=== PATIENT | male | born 1960 | race African-American/Black ===

== ENCOUNTER → 2017-07-16 | Outpatient (CLI) | payer OTHER ==
--- NOTE | 2017-07-16 18:04 | RADIOLOGY REPORT (SQ) ---
EXAM DESCRIPTION: FOOT BILATERAL 2 VIEWS COMPLETED DATE/TIME: 07/16/2017 5:47 pm REASON FOR STUDY: Pain in left foot COMPARISON: None. NUMBER OF VIEWS: Three views. TECHNIQUE: AP, lateral and oblique radiographic images acquired of the right and left foot. LIMITATIONS: None. FINDINGS: MINERALIZATION: Normal. BONES: No acute fracture or dislocation. There is a small plantar calcaneal spur on the right. JOINTS: No effusions. SOFT TISSUES: No soft tissue swelling. No foreign body. OTHER: No other significant finding. IMPRESSION: Calcaneal spur on the right. No acute abnormality. TECHNICAL DOCUMENTATION: JOB ID: [id number] [employer]- All Rights Reserved
== END ==
LOC: RAD 17:13
PROVIDERS: ATTEND Nurse Practitioner
DX: M79.672 Pain in left foot (principal); M77.31 Calcaneal spur, right foot

== ENCOUNTER 2017-11-24 10:11 | Emergency (ER) | payer OTHER ==
[2017-11-24 10:23] VITALS: BP 147/69
[2017-11-24] MEDS ORDERED: KETOROLAC TROMETHAMINE 60 MG/2 ML SDV ONE (11:44)
[2017-11-24] MEDS ORDERED: OXYCODONE-ACETAMINOPHEN 5-325 MG TABLET ONE (11:45)
--- NOTE | 2017-11-25 09:58 | RADIOLOGY REPORT (SQ) ---
EXAM DESCRIPTION: L SPINE WHOLE COMPLETED DATE/TIME: 11/25/2017 1:27 am REASON FOR STUDY: FALL, LBP, RT PELVIC PAIN COMPARISON: None. NUMBER OF VIEWS: Five views including obliques. TECHNIQUE: AP, lateral, oblique, and sacral radiographic images acquired of the lumbar spine. LIMITATIONS: None. FINDINGS: MINERALIZATION: Normal. SEGMENTATION: Normal. No transitional anatomy. ALIGNMENT: Normal. VERTEBRAE: Maintained height. No fracture or worrisome bone lesion. DISCS: Preserved height. No significant osteophytes or end plate irregularity. POSTERIOR ELEMENTS: Pedicles and facets are intact. No pars defect or posterior arch defects. HARDWARE: None in the spine. PARASPINAL SOFT TISSUES: Normal. PELVIS: Intact as visualized. No fractures or worrisome bone lesions. SI joints intact. OTHER: No other significant finding. IMPRESSION: NO ACUTE OSSEOUS ABNORMALITY. TECHNICAL DOCUMENTATION: JOB ID: [id number] [employer]- All Rights Reserved
--- NOTE | 2017-11-25 09:59 | RADIOLOGY REPORT (SQ) ---
EXAM DESCRIPTION: PELVIS AP COMPLETED DATE/TIME: 11/25/2017 1:27 am REASON FOR STUDY: FALL, LBP, RT PELVIC PAIN COMPARISON: None. NUMBER OF VIEWS: One view TECHNIQUE: AP Pelvis LIMITATIONS: None. FINDINGS: MINERALIZATION: Normal. HIPS: No acute fracture or dislocation. No worrisome bone lesions. PELVIS AND SACRUM: No acute fracture or dislocation. No worrisome bone lesions. PUBIS AND ISCHIUM: No acute fracture. LOWER LUMBAR SPINE: No significant findings as visualized. SOFT TISSUES: No findings. OTHER: No other significant finding. IMPRESSION: NO FRACTURE IDENTIFIED TECHNICAL DOCUMENTATION: JOB ID: [id number] [employer]- All Rights Reserved
== END 2017-11-24 13:25 | disposition home or self-care (01) ==
LOC: ER 10:11
DX: S39.012A Strain of muscle, fascia and tendon of lower back, initial encounter (principal); M54.41 Lumbago with sciatica, right side; W00.0XXA Fall on same level due to ice and snow, initial encounter; G89.29 Other chronic pain; M79.604 Pain in right leg
CPT/HCPCS: 72110; 72170; 99283

== ENCOUNTER 2019-05-22 17:01 | Emergency (ER) | payer OTHER ==
--- NOTE | 2019-05-22 18:49 | ER Document Report ---
ED Medical Screen (RME) - General Chief Complaint: Urinary Problem Stated Complaint: PAINFUL URINATION Time Seen by Provider: 05/22/19 18:43 Primary Care Provider: TUAN ORONA NP [Primary Care Provider] - Follow up as needed Notes: Patient is a 59-year-old male who presents emergency department with a chief complaint of urinary retention. is at bedside to provide additional history. He has had this problem for the past week. states he has only been urinating a little bit and that he is in pain. Patient has dementia and has difficulty expressing how he feels. Denies hematuria. Exam: patient attempting to urinate in urinal. I have greeted and performed a rapid initial assessment of this patient. A comprehensive ED assessment and evaluation of the patient, analysis of test results and completion of medical decision making process will be conducted by an additional ED providers. TRAVEL OUTSIDE OF THE [place] IN LAST 30 DAYS: No - Related Data Allergies/Adverse Reactions: No Known Allergies Allergy (Verified 05/22/19 17:04) Past Medical History - Social History Chew tobacco use (# tins/day): No Frequency of alcohol use: None Drug Abuse: None - Past Medical History Cardiac Medical History: Reports: Hx Hypertension Neurological Medical History: Reports: Hx Seizures - Only as a child Renal/ Medical History: Denies: Hx Peritoneal Dialysis GI Medical History: Reports: Hx Gastroesophageal Reflux Disease Past Surgical History: Reports: Hx Cardiac Catheterization - Immunizations Hx Diphtheria, Pertussis, Tetanus Vaccination: Yes Physical Exam - Vital signs Vitals: Temp Pulse Resp BP Pulse Ox 97.6 F 86 20 130/65 H 100 05/22/19 17:21 05/22/19 17:21 05/22/19 17:21 05/22/19 17:21 05/22/19 17:21 Course - Vital Signs Vital signs: Temp Pulse Resp BP Pulse Ox 97.6 F 86 20 130/65 H 100 05/22/19 17:21 05/22/19 17:21 05/22/19 17:21 05/22/19 17:21 05/22/19 17:21 Doctor's Discharge - Discharge Referrals: TUAN ORONA NP [Primary Care Provider] - Follow up as needed
[2019-05-22] MEDS ORDERED: LIDOCAINE 2% URO-JET 5 ML KIT MM ONE (20:41)
--- NOTE | 2019-05-22 22:02 | RADIOLOGY REPORT (SQ) ---
EXAM DESCRIPTION: RadLex: XR ABDOMEN SUPINE AND ERECT WITH CHEST (ABD ACUTE SERIES) Views: 3 CLINICAL HISTORY: 59 years Male, abd swelling, no bowel movement for 1 week COMPARISON: Chest 04/11/2015 FINDINGS: AP Chest: Lungs are clear without infiltrate, effusion, pneumothorax. Mediastinum is within normal limits for positioning. No acute bone findings. Supine and erect AP abdomen: There is moderate colonic fecal retention, without distention. No small bowel distention. No pneumatosis. No free air or air-fluid levels. No suspicious calcifications. IMPRESSION: 1. No acute findings.
[2019-05-22 22:04] LABS: APPEARANCE,URINE CLEAR; BILIRUBIN,URINE NEGATIVE (NEGATIVE); COLOR,URINE YELLOW; GLUCOSE, URINE NEGATIVE (NEGATIVE); KETONES,URINE NEGATIVE (NEGATIVE); URINE SPECIFIC GRAVITY 1.017
[2019-05-22 22:05] LABS: LEUKOCYTE ESTERASE,URINE NEGATIVE (NEGATIVE); NITRITE,URINE NEGATIVE (NEGATIVE); PROTEIN,URINE NEGATIVE (NEGATIVE)
--- NOTE | 2019-05-22 22:13 | ER Document Report ---
ED GI/ - General Chief Complaint: Urinary Problem Stated Complaint: PAINFUL URINATION Time Seen by Provider: 05/22/19 18:43 Primary Care Provider: TUAN ORONA NP [Primary Care Provider] - Follow up as needed Notes: Patient is a 59-year-old male that comes to the emergency department for chief complaint of difficulty and occasionally painful urination. He states that when he tries to go he cannot, then later he will have some dribbling. He states he has not had this problem before that he can recall. Patient is a very poor historian, has a history of dementia, hypertension, CAD. Patient and family do not report a history of BPH to me. Patient denies vomiting, fever, however family states that his belly seems swollen and he has not had a bowel movement in about a week. TRAVEL OUTSIDE OF THE [place] IN LAST 30 DAYS: No - Related Data Allergies/Adverse Reactions: No Known Allergies Allergy (Verified 05/22/19 20:09) Past Medical History - General Information source: Patient - Social History Smoking Status: Former Smoker Chew tobacco use (# tins/day): No Frequency of alcohol use: None Drug Abuse: None Lives with: Family Family History: Reviewed & Not Pertinent Patient has suicidal ideation: No Patient has homicidal ideation: No - Past Medical History Cardiac Medical History: Reports: Hx Hypercholesterolemia, Hx Hypertension Neurological Medical History: Reports: Hx Seizures - Only as a child Renal/ Medical History: Denies: Hx Peritoneal Dialysis GI Medical History: Reports: Hx Gastroesophageal Reflux Disease Past Surgical History: Reports: Hx Cardiac Catheterization - Immunizations Hx Diphtheria, Pertussis, Tetanus Vaccination: Yes Review of Systems - Review of Systems Constitutional: No symptoms reported EENT: No symptoms reported Cardiovascular: No symptoms reported Respiratory: No symptoms reported Gastrointestinal: See HPI Genitourinary: See HPI Male Genitourinary: No symptoms reported Musculoskeletal: No symptoms reported Skin: No symptoms reported Hematologic/Lymphatic: No symptoms reported Neurological/Psychological: No symptoms reported Physical Exam - Vital signs Vitals: Temp Pulse Resp BP Pulse Ox 97.6 F 86 20 130/65 H 100 05/22/19 17:21 05/22/19 17:21 05/22/19 17:21 05/22/19 17:21 05/22/19 17:21 - Notes Notes: GENERAL: Alert, interacts well. No acute distress. HEAD: Normocephalic, atraumatic. EYES: Pupils equal, round, and reactive to light. Extraocular movements intact. ENT: Oral mucosa moist, tongue midline. Oropharynx unremarkable. Airway patent. LUNGS: Clear to auscultation bilaterally, no wheezes, rales, or rhonchi. No respiratory distress. HEART: Regular rate and rhythm. No murmur ABDOMEN: Soft, non-tender. Slightly distended. Bowel sounds present in all 4 quadrants. GENITOURINARY: No swelling or concerning findings noted. EXTREMITIES: Moves all 4 extremities spontaneously. No edema, normal radial and dorsalis pedis pulses bilaterally. No cyanosis. BACK: no cervical, thoracic, lumbar midline tenderness. No saddle anesthesia, normal distal neurovascular exam. Moves all extremities in full range of motion. NEUROLOGICAL: Normal speech. Confused but per baseline. Follows directions. Cranial nerves II through XII grossly intact. PSYCH: Somewhat flat affect. SKIN: Warm, dry, normal turgor. No rashes or lesions noted. Course - Re-evaluation Re-evalutation: Urinalysis does not show infection. Patient had a little bit of dribbling urination on my evaluation but was unable to void completely. Bhardwaj catheter was placed with good results. Suspect patient is having some urinary retention secondary to BPH. Bhardwaj will be left in place, he will follow-up with urology in regards to this. CBC, chemistry nonspecific. Supplemented potassium. Acute abdominal series showing constipation but no acute findings. Appears to be a lot of stool in the rectum. Rectal examination was performed with Isiah MAK present at bedside, I did remove some firm stool from the rectal vault, however there was no concerning tenderness, no hard stool, no bleeding. Discussed options, decision was made to place patient on stool softeners for the next several days for this as well. Discussed results, follow-up, instructions, return precautions with patient and family at bedside. They state understanding and agreement. - Vital Signs Vital signs: Temp Pulse Resp BP Pulse Ox 98.9 F 87 20 147/82 H 96 05/23/19 02:10 05/23/19 02:10 05/23/19 02:10 05/23/19 02:10 05/23/19 02:10 - Laboratory Result Diagrams: 05/22/19 22:38 05/22/19 22:38 Laboratory results interpreted by me: 05/22/19 05/22/19 05/22/19 21:40 22:38 22:38 MCV 79 L Sodium 133.7 L Potassium 3.4 L Total Bilirubin 2.5 H Total Protein 8.9 H Urine Urobilinogen 4.0 H Discharge - Discharge Clinical Impression: Urinary retention Constipation Qualifiers: Constipation type: unspecified constipation type Qualified Code(s): K59.00 - Constipation, unspecified Condition: Stable Disposition: HOME, SELF-CARE Additional Instructions: His urine does not show an infection. His difficulty with urinating is most likely a prostate abnormality. Because of his urinary retention we have placed a Bhardwaj, leave this in place and follow-up closely with urology this week. See referral listed below, call Saturday to set up this close follow-up. Take the stool softener as prescribed for the next several days until bowel movements become normal. His potassium was slightly low, he has been supplemented. Follow-up with primary care. Return if he worsens including fever, vomiting, severe abdominal pain, or any other concerning or worsening symptoms. [facility] [address] [place], [place] [id number] [facility] [address] [place], [place] [id number] Pasquale Rosenberg MD Doctor in [place], [place] Address: [facility] [address], [place] [address] Prescriptions: Docusate Sodium [Colace 100 mg Capsule] 100 mg PO ASDIR PRN #30 capsule PRN Reason: Referrals: TUAN ORONA NP [Primary Care Provider] - Follow up as needed
[2019-05-22 22:51] LABS: ABSOLUTE BASOPHILS # (AUTO) 0.1 10^3/uL (0.0-0.2); ABSOLUTE EOSINOPHILS # (AUTO) 0.1 10^3/uL (0.0-0.6); ABSOLUTE LYMPHOCYTES (AUTO) 2.1 10^3/uL (0.5-4.7); ABSOLUTE MONOCYTES (AUTO) 0.7 10^3/uL (0.1-1.4); ABSOLUTE NEUT (AUTO) 4.3 10^3/uL (1.7-8.2); BASOPHILS % (AUTO) 0.8 % (0-2); EOSINOPHILS % (AUTO) 1.7 % (0-6); HEMATOCRIT 42.4 % (37.9-51.0); HEMOGLOBIN 15.2 g/dL (13.5-17.0); MEAN CORPUSCULAR HEMOGLOBIN 28.3 pg (27.0-33.4); MEAN CORPUSCULAR HGB CONC 35.9 g/dL (32.0-36.0); MEAN CORPUSCULAR VOLUME 79 fl (80-97); MONOCYTES % (AUTO) 9.3 % (3-13); PLATELET COUNT 260 10^3/uL (150-450); RED BLOOD COUNT 5.38 10^6/uL (4.35-5.55); RED CELL DISTRIBUTION WIDTH 13.3 % (11.5-14.0); SEGMENTED NEUTROPHILS % (AUTO) 59.2 % (42-78); TOTAL CELLS COUNTED % (AUTO) 100 %; WHITE BLOOD COUNT 7.2 10^3/uL (4.0-10.5)
[2019-05-22] MEDS ORDERED: NORMAL SALINE 1000 ML 1,000 ML IV ONE (22:51)
[2019-05-22 23:13] LABS: ALANINE AMINOTRANSFERASE 32 U/L (21-72); ALBUMIN 4.6 g/dL (3.5-5.0); ALKALINE PHOSPHATASE 84 U/L (38-126); ANION GAP 6 (5-19); ASPARTATE AMINO TRANSFERASE 27 U/L (17-59); BILIRUBIN,DIRECT 0.4 mg/dL (0.0-0.4); BILIRUBIN,TOTAL 2.5 mg/dL (0.2-1.3); BLOOD UREA NITROGEN 17 mg/dL (7-20); CALCIUM 9.7 mg/dL (8.4-10.2); CARBON DIOXIDE 30 mmol/L (22-30); CHLORIDE 98 mmol/L (98-107); GLUCOSE 78 mg/dL (75-110); POTASSIUM 3.4 mmol/L (3.6-5.0); SODIUM 133.7 mmol/L (137-145); TOTAL PROTEIN 8.9 g/dL (6.3-8.2)
[2019-05-22] MEDS ORDERED: POTASSIUM CHLORIDE 10 MEQ CAPSULE.ER PO ONE (23:40)
[2019-05-23 02:36] VITALS: BP 147/82
== END 2019-05-23 01:50 | disposition home or self-care (01) ==
LOC: ER 17:01
DX: R33.9 Retention of urine, unspecified (principal); K59.00 Constipation, unspecified; R30.9 Painful micturition, unspecified; I25.10 Atherosclerotic heart disease of native coronary artery without angina pectoris; I10 Essential (primary) hypertension; Z87.891 Personal history of nicotine dependence
CPT/HCPCS: 99283; 51702; 36415; 85025; 80053; 81001; 74022; J7030; J3490; 96360

== ENCOUNTER 2019-07-04 14:45 | Emergency (ER) | payer OTHER ==
[2019-07-04 14:52] VITALS: BP 126/76
--- NOTE | 2019-07-04 15:43 | RADIOLOGY REPORT (SQ) ---
EXAM DESCRIPTION: HAND RIGHT 3 VIEWS COMPLETED DATE/TIME: 07/04/2019 3:24 pm REASON FOR STUDY: tripped, almost fell, r hand pain COMPARISON: None. EXAM PARAMETERS: NUMBER OF VIEWS: Three views. TECHNIQUE: AP, lateral and oblique radiographic images acquired of the right hand. LIMITATIONS: None. FINDINGS: MINERALIZATION: Normal. BONES: There is a minimally displaced oblique fracture through the 3rd metacarpal. JOINTS: No effusions. SOFT TISSUES: Circumferential soft tissue swelling is seen of the hand. OTHER: No other significant finding. IMPRESSION: Minimally displaced oblique fracture through the 3rd metacarpal. TECHNICAL DOCUMENTATION: JOB ID: [id number] [employer]- All Rights Reserved Reading location - IP/workstation name: [email or web address]
--- NOTE | 2019-07-04 16:05 | ER Document Report ---
HPI - HPI Patient complains to provider of: r hand injury Time Seen by Provider: 07/04/19 15:03 Onset: Yesterday Onset/Duration: Sudden Quality of pain: Achy Pain Level: 3 Context: Patient was walking down the hallway tripped and almost fell. Patient tried to catch himself prior to falling and hit his hand on the wall. witnessed patient's near fall. Since then patient has had right hand pain and swelling. Patient does have a history of dementia. Associated Symptoms: Other - right hand pain. denies: Fever, Headache, Nausea Exacerbated by: Movement Relieved by: Remaining still Similar symptoms previously: No Recently seen / treated by doctor: No - ROS ROS below otherwise negative: Yes Systems Reviewed and Negative: Yes All other systems reviewed and negative - NEURO Neurology: DENIES: Headache, Weakness - GASTROINTESTINAL Gastrointestinal: DENIES: Nausea - MUSCULOSKELETAL Musculoskeletal: REPORTS: Extremity pain - RIGHT HAND, Swelling - DERM Skin Color: Normal Skin Problems: None Past Medical History - General Information source: Patient, Relative - Social History Smoking Status: Never Smoker Chew tobacco use (# tins/day): No Frequency of alcohol use: None Drug Abuse: None Lives with: Family Family History: Reviewed & Not Pertinent Patient has suicidal ideation: No Patient has homicidal ideation: No - Past Medical History Cardiac Medical History: Reports: Hx Hypercholesterolemia, Hx Hypertension Neurological Medical History: Reports: Hx Seizures - Only as a child Renal/ Medical History: Denies: Hx Peritoneal Dialysis GI Medical History: Reports: Hx Gastroesophageal Reflux Disease Infectious Medical History: Reports: Hx HIV Past Surgical History: Reports: Hx Cardiac Catheterization - WITH STENTS - Immunizations Hx Diphtheria, Pertussis, Tetanus Vaccination: Yes Vertical Provider Document - CONSTITUTIONAL Agree With Documented VS: Yes Exam Limitations: No Limitations General Appearance: WD/WN, No Apparent Distress - INFECTION CONTROL TRAVEL OUTSIDE OF THE [place] IN LAST 30 DAYS: No - HEENT HEENT: Atraumatic, Normocephalic - NECK Neck: Normal Inspection - RESPIRATORY Respiratory: Breath Sounds Normal, No Respiratory Distress - CARDIOVASCULAR Cardiovascular: Regular Rate, Regular Rhythm Pulses: Normal: Radial - MUSCULOSKELETAL/EXTREMETIES Musculoskeletal/Extremeties: MAEW, Tender - Right hand tenderness over - NEURO Level of Consciousness: Awake, Alert, Appropriate Motor/Sensory: No Motor Deficit - DERM Integumentary: Warm, Dry, No Rash Course - Vital Signs Vital signs: Temp Pulse Resp BP Pulse Ox 98.0 F 80 18 126/76 H 99 07/04/19 14:50 07/04/19 14:50 07/04/19 14:50 07/04/19 14:50 07/04/19 14:50 - Diagnostic Test Radiology reviewed: Image reviewed, Reports reviewed Procedures - Immobilization Right Hand Pre-Proc Neuro Vasc Exam: Normal Immobilizer type: Other - pamela Performed by: PCT Post-Proc Neuro Vasc Exam: Normal Alignment checked and good: Yes Discharge - Discharge Clinical Impression: Metacarpal bone fracture Qualifiers: Encounter type: initial encounter Metacarpal bone: third Fracture type: closed Metacarpal location: shaft Fracture alignment: displaced Laterality: right Qualified Code(s): S62.322A - Displaced fracture of shaft of third metacarpal bone, right hand, initial encounter for closed fracture Condition: Stable Disposition: HOME, SELF-CARE Instructions: Fractured Metacarpal ([facility]), Ice & Elevation ([facility]), Splint Preca utions ([facility]) Additional Instructions: Return immediately for any new or worsening symptoms Followup with your primary care provider, call tomorrow to make a followup appointment Follow-up with orthopedics for further management, call Saturday for an appointment Referrals: [facility] ([facility]) [Provider Group] - 07/06/19
[2019-07-04] MEDS ORDERED: HYDROCODONE/ACETAMINOPHEN 5-325 MG TABLET PO ONE (16:45)
== END 2019-07-04 16:51 | disposition home or self-care (01) ==
LOC: ER 14:45
DX: S62.322A Displaced fracture of shaft of third metacarpal bone, right hand, initial encounter for closed fracture (principal); M79.641 Pain in right hand; W22.01XA Walked into wall, initial encounter; I10 Essential (primary) hypertension; Z21 Asymptomatic human immunodeficiency virus [HIV] infection status
CPT/HCPCS: 99283

== ENCOUNTER 2019-08-08 19:16 | Emergency (ER) | payer OTHER ==
[2019-08-08 19:50] LABS: ABSOLUTE BASOPHILS # (AUTO) 0.1 10^3/uL (0.0-0.2); ABSOLUTE LYMPHOCYTES (AUTO) 1.9 10^3/uL (0.5-4.7); ABSOLUTE MONOCYTES (AUTO) 0.9 10^3/uL (0.1-1.4); ABSOLUTE NEUT (AUTO) 7.5 10^3/uL (1.7-8.2); BASOPHILS % (AUTO) 0.5 % (0-2); EOSINOPHILS % (AUTO) 0.2 % (0-6); HEMATOCRIT 40.7 % (37.9-51.0); HEMOGLOBIN 14.1 g/dL (13.5-17.0); LYMPHOCYTES % (AUTO) 18.5 % (13-45); MEAN CORPUSCULAR HGB CONC 34.6 g/dL (32.0-36.0); MEAN CORPUSCULAR VOLUME 81 fl (80-97); PLATELET COUNT 340 10^3/uL (150-450); RED BLOOD COUNT 5.04 10^6/uL (4.35-5.55); SEGMENTED NEUTROPHILS % (AUTO) 71.8 % (42-78); TOTAL CELLS COUNTED % (AUTO) 100 %; WHITE BLOOD COUNT 10.5 10^3/uL (4.0-10.5)
[2019-08-08 20:07] LABS: ALBUMIN 4.3 g/dL (3.5-5.0); ALKALINE PHOSPHATASE 92 U/L (38-126); ANION GAP 11 (5-19); ASPARTATE AMINO TRANSFERASE 34 U/L (17-59); BILIRUBIN,TOTAL 2.2 mg/dL (0.2-1.3); BLOOD UREA NITROGEN 14 mg/dL (7-20); CALCIUM 9.7 mg/dL (8.4-10.2); CARBON DIOXIDE 28 mmol/L (22-30); CHLORIDE 102 mmol/L (98-107); GLUCOSE 96 mg/dL (75-110); POTASSIUM 3.7 mmol/L (3.6-5.0); TOTAL PROTEIN 8.3 g/dL (6.3-8.2)
[2019-08-08 20:15] LABS: ALCOHOL < 10 mg/dL (NONE DETECTED)
--- NOTE | 2019-08-08 20:19 | ER Document Report ---
ED General - General Chief Complaint: Seizure Stated Complaint: SEIZURES Time Seen by Provider: 08/08/19 20:04 Mode of Arrival: Medic Information source: Relative Cannot obtain history due to: Dementia Notes: Patient brought in by EMS for seizure activity progressive over the last 24 hours. Patient is HIV positive and has history of vascular dementia. is at the bedside and is his caregiver. She tells me that she basically has to do all of his ADLs. Patient is status post stent in both chest and legs. He received Versed in route for seizure activity that the describes as jerking that started in the abdomen. He is compliant with his HIV medications per his . History is limited by the patient's dementia and acuity. He receives his medical care at [facility]. TRAVEL OUTSIDE OF THE [place] IN LAST 30 DAYS: No - Related Data Allergies/Adverse Reactions: No Known Allergies Allergy (Verified 07/04/19 14:46) Past Medical History - General Information source: Relative - Social History Smoking Status: Unknown if Ever Smoked Family History: Reviewed & Not Pertinent - Past Medical History Cardiac Medical History: Reports: Hx Hypercholesterolemia, Hx Hypertension Neurological Medical History: Reports: Hx Seizures - Only as a child Renal/ Medical History: Denies: Hx Peritoneal Dialysis GI Medical History: Reports: Hx Gastroesophageal Reflux Disease Infectious Medical History: Reports: Hx HIV Past Surgical History: Reports: Hx Cardiac Catheterization - WITH STENTS - Immunizations Hx Diphtheria, Pertussis, Tetanus Vaccination: Yes Review of Systems - Review of Systems -: Yes ROS unobtainable due to patient's medical condition Physical Exam - Vital signs Vitals: Resp Pulse Ox 11 L 98 08/08/19 19:19 08/08/19 19:19 - General Notes: AROUSABLE TO VOICE AND TOUCH - HEENT Head: Normocephalic, Atraumatic Eyes: Normal Pupils: PERRL Mouth/Lips: Normal Mucous membranes: Normal Pharynx: Normal Neck: Normal - Respiratory Respiratory status: No respiratory distress Chest status: Nontender Breath sounds: Normal Chest palpation: Normal - Cardiovascular Rhythm: Regular Heart sounds: Normal auscultation Murmur: No - Abdominal Inspection: Normal Distension: No distension Bowel sounds: Normal Tenderness: Nontender Organomegaly: No organomegaly - Back Back: Normal, Nontender - Extremities General upper extremity: Normal inspection, Nontender, Normal color, Normal ROM, Normal temperature General lower extremity: Normal inspection, Nontender, Normal color, Normal ROM, Normal temperature. No: Hilaria's sign - Neurological Neuro grossly intact: Yes Cognition: Confused Hallowell Coma Scale Eye Opening: Spontaneous Linda Coma Scale Verbal: Confused Linda Coma Scale Motor: Localizes to Pain Linda Coma Scale Total: 13 Motor strength normal: LUE, RUE, LLE, RLE Sensory: Normal Notes: BASELINE DEMENTIA - Psychological Associated symptoms: Normal affect, Normal mood - Skin Skin Temperature: Warm Skin Moisture: Dry Skin Color: Normal Course - Re-evaluation Re-evalutation: 08/08/19 20:20 EKG per me normal sinus rhythm at a rate of 89 with left axis deviation and nonspecific T waves. 08/08/19 22:11 PT HAS STARTED SEIZING AGAIN RUE: ATIVAN 1MG ORDERED IV. FAMILY IS REQUESTING TRANSFER TO [facility]: WILL ARRANGE FOR TRANSFER. 08/08/19 23:25 DISCUSSED CASE IN DETAIL WITH RESIDENT DR. YANCEY AT [facility] FOR TRANSFER. ACCEPTING DR IS ROBY LEUNG. PT'S SEIZING IS CURRENTLY CONTROLLED WITH ATIVAN. - Vital Signs Vital signs: Temp Pulse Resp BP Pulse Ox 97.9 F 22 H 125/74 99 08/08/19 23:00 08/08/19 23:01 08/08/19 23:01 08/08/19 23:01 - Laboratory Result Diagrams: 08/08/19 19:35 08/08/19 19:35 Laboratory results interpreted by me: 08/08/19 19:35 Total Bilirubin 2.2 H Total Protein 8.3 H - Diagnostic Test Radiology reviewed: Image reviewed, Reports reviewed Discharge - Discharge Clinical Impression: Seizure, HIV positive Condition: Serious Disposition: PENDING SALE TO [facility]
--- NOTE | 2019-08-08 21:37 | RADIOLOGY REPORT (SQ) ---
EXAM DESCRIPTION: CT HEAD WITHOUT IV CONTRAST COMPLETED DATE/TME: 08/08/2019 20:12 CLINICAL HISTORY: 59 years, Male, SEIZURE COMPARISON: None. TECHNIQUE: 197 Images stored on PACS. All CT scanners at this facility use dose modulation, iterative reconstruction, and/or weight based dosing when appropriate to reduce radiation dose to as low as reasonably achievable (ALARA). [facility]: Dose Right [facility]: CareDose [facility]: Dose Right [facility]: Teradose 4D [facility]: Archetypes LIMITATIONS: None. FINDINGS: The globes are intact. The paranasal sinuses and mastoid air cells are unremarkable. No displaced or depressed skull fracture. No intra or extra-axial hemorrhage. CT is limited for evaluation of acute infarct. No CT evidence for large or territorial acute infarct. Mild diffuse atrophy with small vessel ischemic change. No mass or midline shift IMPRESSION: Mild atrophy and small vessel ischemic change TECHNICAL DOCUMENTATION: Quality ID # [id number]: Final reports with documentation of one or more dose reduction techniques (e.g., Automated exposure control, adjustment of the mA and/or kV according to patient size, use of iterative reconstruction technique) copyright 2011 [employer]- All Rights Reserved
[2019-08-08] MEDS ORDERED: LORAZEPAM INJ 2 MG/1 ML VIAL IV ONE (22:01)
--- NOTE | 2019-08-08 22:14 | EKG REPORT ---
SEVERITY:- BORDERLINE ECG - SINUS RHYTHM BORDERLINE LEFT AXIS DEVIATION BORDERLINE T WAVE ABNORMALITIES : Confirmed by: Derek Russell MD 08-Aug-2019 22:13:33
[2019-08-09 02:03] VITALS: BP 123/72
== END 2019-08-09 02:15 | disposition short-term general hospital (02) ==
LOC: ER 19:16
DX: R56.9 Unspecified convulsions (principal); Z21 Asymptomatic human immunodeficiency virus [HIV] infection status; Z79.899 Other long term (current) drug therapy; F01.50 Vascular dementia, unspecified severity, without behavioral disturbance, psychotic disturbance, mood disturbance, and anxiety; I10 Essential (primary) hypertension; Z95.5 Presence of coronary angioplasty implant and graft
CPT/HCPCS: 93005; 36415; 80307; 83735; 85025; 80053; 84484; 70450; 93010; J2060; 96374; 99285

== ENCOUNTER → 2020-03-23 | Outpatient (CLI) | payer OTHER, MEDICAID ==
--- NOTE | 2020-03-23 14:52 | RADIOLOGY REPORT (SQ) ---
EXAM DESCRIPTION: CT HEAD WITHOUT IMAGES COMPLETED DATE/TIME: 03/23/2020 2:21 pm REASON FOR STUDY: R41.82 ALTERED MENTAL STATUS, UNSPECIFIED R41.82 ALTERED MENTAL STATUS, UNSPECIFI ED COMPARISON: None. TECHNIQUE: Axial images acquired through the brain without intravenous contrast. Images reviewed wi th bone, brain and subdural windows. Additional sagittal and coronal reconstructions were generated. Images stored on PACS. All CT scanners at this facility use dose modulation, iterative reconstruction, and/or weight based d osing when appropriate to reduce radiation dose to as low as reasonably achievable (ALARA). [facility]: Dose Right [facility]: CareDose [facility]: Dose Right [facility]: Teradose 4D [facility]: Apps4Pro RADIATION DOSE: CT Rad equipment meets quality standard of care and radiation dose reduction techniq ues were employed. CTDIvol: 48.6 mGy. DLP: 954 mGy-cm.mGy. LIMITATIONS: None. FINDINGS: VENTRICLES: Prominent. CEREBRUM: No masses. No hemorrhage. No midline shift. Areas of low density in the white matter mos t likely due to chronic micro-vascular ischemic change. No evidence for acute infarction. CEREBELLUM: No masses. No hemorrhage. No alteration of density. No evidence for acute infarction. EXTRAAXIAL SPACES: Age-related involutional change. No fluid collections. No masses. ORBITS AND GLOBE: No intra- or extraconal masses. Normal contour of globe without masses. CALVARIUM: No fracture. PARANASAL SINUSES: No fluid or mucosal thickening. SOFT TISSUES: No mass or hematoma. OTHER: No other significant finding. IMPRESSION: CHRONIC CHANGES OF ATROPHY AND MICROVASCULAR ISCHEMIA. NO ACUTE PROCESS. EVIDENCE OF ACUTE STROKE: NO. TECHNICAL DOCUMENTATION: JOB ID: [id number] Quality ID # [id number]: Final reports with documentation of one or more dose reduction techniques (e.g., Au tomated exposure control, adjustment of the mA and/or kV according to patient size, use of iterative reconstruction technique) 2010 [employer]- All Rights Reserved Reading location - IP/workstation name: [email or web address]
== END ==
LOC: RAD 13:59
PROVIDERS: ATTEND Family Medicine
DX: R41.82 Altered mental status, unspecified (principal); G31.9 Degenerative disease of nervous system, unspecified
CPT/HCPCS: 70450

== ENCOUNTER 2020-03-28 08:15 | Emergency (ER) | payer OTHER, MEDICAID ==
[2020-03-28] MEDS ORDERED: NORMAL SALINE 1000 ML 1,000 ML IV ONE (08:27)
[2020-03-28] MEDS ORDERED: LEVETIRACETAM 1000 MG/NACL-ISO 1,000 MG/100 ML RTUPB IV ONE ×2 (08:35→15:04)
[2020-03-28 09:35] LABS: ABSOLUTE BASOPHILS # (AUTO) 0.1 10^3/uL (0.0-0.2); ABSOLUTE EOSINOPHILS # (AUTO) 0.1 10^3/uL (0.0-0.6); ABSOLUTE LYMPHOCYTES (AUTO) 1.4 10^3/uL (0.5-4.7); ABSOLUTE MONOCYTES (AUTO) 0.5 10^3/uL (0.1-1.4); ABSOLUTE NEUT (AUTO) 4.1 10^3/uL (1.7-8.2); BASOPHILS % (AUTO) 0.9 % (0-2); EOSINOPHILS % (AUTO) 0.9 % (0-6); HEMATOCRIT 39.4 % (37.9-51.0); HEMOGLOBIN 14.3 g/dL (13.5-17.0); LYMPHOCYTES % (AUTO) 22.5 % (13-45); MEAN CORPUSCULAR HEMOGLOBIN 28.6 pg (27.0-33.4); MEAN CORPUSCULAR HGB CONC 36.4 g/dL (32.0-36.0); MEAN CORPUSCULAR VOLUME 79 fl (80-97); MONOCYTES % (AUTO) 7.5 % (3-13); PLATELET COUNT 207 10^3/uL (150-450); RED BLOOD COUNT 5.01 10^6/uL (4.35-5.55); RED CELL DISTRIBUTION WIDTH 13.5 % (11.5-14.0); SEGMENTED NEUTROPHILS % (AUTO) 68.2 % (42-78); TOTAL CELLS COUNTED % (AUTO) 100 %; WHITE BLOOD COUNT 6.1 10^3/uL (4.0-10.5)
[2020-03-28 09:40] LABS: INTERNATIONAL RATION (INR) 1.21; PROTHROMBIN TIME 15.3 SEC (11.4-15.4)
[2020-03-28 09:41] LABS: PARTIAL THROMBOPLASTIN TIME 34.2 SEC (23.5-35.8)
[2020-03-28 10:08] LABS: ANION GAP 8 (5-19)
[2020-03-28 10:20] LABS: TROPONIN I 0.012 ng/mL
--- NOTE | 2020-03-28 10:24 | RADIOLOGY REPORT (SQ) ---
EXAM DESCRIPTION: CT HEAD WITHOUT IMAGES COMPLETED DATE/TIME: 03/28/2020 9:25 am REASON FOR STUDY: seizure this AM COMPARISON: CT of the head without contrast from 03/23/2020. TECHNIQUE: Axial images acquired through the brain without intravenous contrast. Images reviewed wi th bone, brain and subdural windows. Additional sagittal and coronal reconstructions were generated. Images stored on PACS. All CT scanners at this facility use dose modulation, iterative reconstruction, and/or weight based d osing when appropriate to reduce radiation dose to as low as reasonably achievable (ALARA). [facility]: Dose Right [facility]: CareDose [facility]: Dose Right [facility]: Teradose 4D [facility]: Abundance Generation RADIATION DOSE: CT Rad equipment meets quality standard of care and radiation dose reduction techniq ues were employed. CTDIvol: 53.2 mGy. DLP: 1044 mGy-cm. LIMITATIONS: None. FINDINGS: There is diffuse age-appropriate cerebral and cerebellar volume loss. The caliber of the ventricles is concordant with the degree of sulcation and unchanged from 03/23/2020. The confluent are as of hypoattenuation that involve the supratentorial periventricular subcortical white matter are al so unchanged and could represent the sequela of chronic microvascular ischemia. There is no acute intracranial hemorrhage, vascular territorial infarct, extra-axial fluid collection , mass effect or midline shift. The parker-white matter differentiation is preserved. There is no eff acement of the cerebral sulci or basal subarachnoid cisterns. The orbits and globes are intact. The paranasal sinuses are clear. There is no fracture of the calv arium. IMPRESSION: No acute intracranial abnormality, EVIDENCE OF ACUTE STROKE: NO. COMMENT: Quality ID # [id number]: Final reports with documentation of one or more dose reduction techniques (e.g., Automated exposure control, adjustment of the mA and/or kV according to patient size, use of iterative reconstruction technique) TECHNICAL DOCUMENTATION: JOB ID: [id number] 2010 [employer]- All Rights Reserved Reading location - IP/workstation name: [email or web address]
[2020-03-28 10:28] LABS: ALBUMIN 3.9 g/dL (3.5-5.0); ALKALINE PHOSPHATASE 94 U/L (38-126); ASPARTATE AMINO TRANSFERASE 49 U/L (17-59); BILIRUBIN,DIRECT 0.3 mg/dL (0.0-0.4); BILIRUBIN,TOTAL 3.8 mg/dL (0.2-1.3); BLOOD UREA NITROGEN 10 mg/dL (7-20); CALCIUM 9.2 mg/dL (8.4-10.2); CARBON DIOXIDE 31 mmol/L (22-30); CHLORIDE 101 mmol/L (98-107); CREATINE KINASE 57 U/L (55-170); GLUCOSE 90 mg/dL (75-110); TOTAL PROTEIN 7.4 g/dL (6.3-8.2)
[2020-03-28 10:30] LABS: POTASSIUM 2.9 mmol/L (3.6-5.0)
--- NOTE | 2020-03-28 10:33 | RADIOLOGY REPORT (SQ) ---
EXAM DESCRIPTION: CHEST SINGLE VIEW IMAGES COMPLETED DATE/TIME: 03/28/2020 9:48 am REASON FOR STUDY: shortness of breath COMPARISON: PA and lateral views of the chest from 04/11/2015. EXAM PARAMETERS: NUMBER OF VIEWS: One view. TECHNIQUE: An AP view of the chest was obtained. RADIATION DOSE: NA LIMITATIONS: None. FINDINGS: LUNGS AND PLEURA: Asymmetric patchy bibasilar opacities. The costophrenic sulci are blunt ed. There is no pneumothorax. MEDIASTINUM AND HILAR STRUCTURES: No mediastinal or hilar contour abnormality. HEART AND VASCULAR STRUCTURES: The cardiac silhouette is enlarged. BONES: No acute findings. HARDWARE: None in the chest. OTHER: Low inspiratory lung volumes. IMPRESSION: Cardiomegaly, asymmetric patchy bibasilar opacities, blunting of the costophrenic sulci. Differential considerations to consider include mild CHF with bilateral pleural effusions and multi focal pneumonia. TECHNICAL DOCUMENTATION: JOB ID: [id number] 2010 [employer]- All Rights Reserved Reading location - IP/workstation name: [email or web address]
[2020-03-28] MEDS ORDERED: POTASSI CL 20 MEQ/50 ML RIDER 20 MEQ/50 ML RTUPB IV ONE (10:36)
[2020-03-28 10:47] LABS: APPEARANCE,URINE SLIGHTLY-CLOUDY; BILIRUBIN,URINE NEGATIVE (NEGATIVE); COLOR,URINE YELLOW; GLUCOSE, URINE NEGATIVE (NEGATIVE); KETONES,URINE 20 mg/dL (NEGATIVE); LEUKOCYTE ESTERASE,URINE NEGATIVE (NEGATIVE); NITRITE,URINE NEGATIVE (NEGATIVE); PROTEIN,URINE 30 mg/dL (NEGATIVE); URINE SPECIFIC GRAVITY 1.025
[2020-03-28 10:57] LABS: URINE AMPHETAMINES SCREEN NEGATIVE; URINE BARBITURATES SCREEN NEGATIVE; URINE COCAINE SCREEN NEGATIVE; URINE MARIJUANA (THC) SCREEN NEGATIVE; URINE METHADONE SCREEN NEGATIVE; URINE PHENCYCLIDINE SCREEN NEGATIVE
[2020-03-28 10:58] LABS: URINE BENZODIAZEPINES SCREEN UNCONFIRMED POSITIVE
[2020-03-28] MEDS ORDERED: LORAZEPAM INJ 2 MG/1 ML VIAL IV ONE ×2 (14:14→14:46)
[2020-03-28] MEDS ORDERED: MIDAZOLAM 2 MG/2 ML INJ IV ONE (15:44)
[2020-03-28] MEDS: MAGNESIUM SULFATE/D5W 1 GM/100 ML RTUPB IV SCH ×2 (16:12→17:11)
[2020-03-28] MEDS ORDERED: ACETAMINOPHEN 325 MG SUPP.RECT PR ONE ×2 (19:30→19:57)
--- NOTE | 2020-03-28 19:51 | ER Document Report ---
Doctor's Note Notes: 03/28/20 19:48 59-[facility]-old [facility] patient DNR/DNI status and longstanding seizure disorder treated primarily today by Dr. Paul with control of his seizures with IV Keppra and IV Ativan. Patient has been accepted for transport to [facility] and I was advised that he is currently postictal. I have reevaluated the patient prior to transport and find his condition to be unchanged from findings as related to me. He appears stable for transport this time.
[2020-03-28 21:07] VITALS: BP 151/77
--- NOTE | 2020-03-28 22:34 | EKG REPORT ---
SEVERITY:- BORDERLINE ECG - SINUS RHYTHM BORDERLINE LEFT AXIS DEVIATION BORDERLINE T WAVE ABNORMALITIES BORDERLINE PROLONGED QT INTERVAL : Confirmed by: Lesly Baker 28-Mar-2020 22:33:50
--- NOTE | 2020-03-29 06:59 | ER Document Report ---
Entered by THEA SADLER SCRIBE 03/28/20 0825 Acting as scribe for:NARCISA COLLINS MD ED General <ESTRELLITA SOLIZ - Last Filed: 03/28/20 17:38> - General Information source: Patient TRAVEL OUTSIDE OF THE [place] IN LAST 30 DAYS: No <NARCISA COLLINS - Last Filed: 03/29/20 06:59> - General Chief Complaint: Probable Seizure Stated Complaint: POSSIBLE SEIZURE Primary Care Provider: YAEL PORTER MD [Primary Care Provider] - Follow up as needed Notes: This 59-year-old male with a history of seizures presents to the emergency department via EMS after having a seizure at [facility] about an hour ago. Patient is postictal at this time so a HPI from patient is unobtainable. EMS reports that [facility] administered 2 doses of Ativan after the patient started seizing. [facility] reported to EMS that normally patient responds well to one dose of Ativan so they called EMS when patient continued to seize. EMS reports that when they arrived patient was seizing with movements of the torso and the lower extremities. EMS denies tongue biting, fecal incontinence and urinary incontinence. EMS said that they gave the patient IM versed and patient's vitals were normal in the truck on the way to the emergency department. EMS reports a blood sugar of 91. EMS said that patient had another seizure about 7-8 minutes ago. EMS states that patient has either been postictal or seizing in their presence. [facility] states that patient is alert and oriented X4 at baseline. (NARCISA COLLINS) - Related Data Allergies/Adverse Reactions: No Known Allergies Allergy (Verified 07/04/19 14:46) Past Medical History - General Information source: Patient - Social History Smoking Status: Former Smoker Cigarette use (# per day): No Chew tobacco use (# tins/day): No Lives with: Shelter Family History: Reviewed & Not Pertinent - Past Medical History Cardiac Medical History: Reports: Hx Hypercholesterolemia, Hx Hypertension Neurological Medical History: Reports: Hx Seizures GI Medical History: Reports: Hx Gastroesophageal Reflux Disease Infectious Medical History: Reports: Hx HIV Past Surgical History: Reports: Hx Cardiac Catheterization - WITH STENTS - Immunizations Hx Diphtheria, Pertussis, Tetanus Vaccination: Yes <NARCISA COLLINS - Last Filed: 03/29/20 06:59> Review of Systems - Review of Systems Constitutional: See HPI. denies: Fever EENT: No symptoms reported Cardiovascular: No symptoms reported Respiratory: No symptoms reported Gastrointestinal: No symptoms reported Genitourinary: No symptoms reported Male Genitourinary: No symptoms reported Musculoskeletal: No symptoms reported Skin: No symptoms reported Hematologic/Lymphatic: No symptoms reported Neurological/Psychological: See HPI, Seizure -: Yes All other systems reviewed and negative <NARCISA COLLINS - Last Filed: 03/29/20 06:59> Physical Exam <KARINANARCISA Mansi - Last Filed: 03/29/20 06:59> - Vital signs Vitals: Temp 98.3 F 03/28/20 08:16 - Notes Notes: Physical Exam: General: Alert, appears lethargic. Patient is aware of environment. HEENT: Normocephalic. Atraumatic. Pupils are 3mm at midline and reactive to light. Extraocular movements intact. Oropharynx clear. Neck: Supple. Non-tender. Respiratory: No respiratory distress. Diminished breath sounds. Cardiovascular: Regular rate and rhythm. Abdominal: Normal Inspection. Non-tender. No distension. Normal Bowel Sounds. Back: No gross abnormalities. Extremities: Moves all four extremities. Upper extremities: Normal inspection. Normal ROM. Lower extremities: Normal inspection. No edema. Normal ROM. Babinski sign- normal. Neurological: Postictal. Psychological: Sedated. Skin: Warm. Moist. Normal color. (NARCISA COLLINS) Course - Laboratory Result Diagrams: 03/28/20 09:15 03/28/20 09:15 <ESTRELLITA SOLIZ - Last Filed: 03/28/20 17:38> - Laboratory Result Diagrams: 03/28/20 09:15 03/28/20 09:15 - Diagnostic Test Radiology reviewed: Image reviewed, Reports reviewed <NARCISA COLLINS - Last Filed: 03/29/20 06:59> - Re-evaluation Re-evalutation: 03/28/20 17:38 I have discussed the patient's current status with his , she notes that she would like him to be a DO NOT RESUSCITATE. If his heart stops she does not want him to be intubated or to have CPR performed. After discussion explained that we will continue to treat his medical condition and to provide the best care possible. I have also explained that the hospitalist at [facility] has requested that the patient be transferred to [facility], due to his prolonged seizures and the lack of neurology coverage it is felt that he will receive a higher level of care at [facility]. Transfer center at [facility], [facility] was contacted and the patient was accepted in transfer by Dr. Cody for Dr. Holden's service. (ESTRELLITA SOLIZ) 03/28/20 15:13 Patient continues to have rhythmic jerks and left lower extremity only. Most likely this is uncontrolled seizure activity. 03/28/20 15:16 Once myoclonic jerks under control peripheral access versus central access IV will be obtained. Currently repeating Accu-Chek to be sure blood sugar is not because of these jerks. (NARCISA COLLINS) - Vital Signs Vital signs: Temp Pulse Resp BP Pulse Ox 99.8 F 99 32 H 151/77 H 95 03/28/20 21:07 03/28/20 21:07 03/28/20 21:07 03/28/20 21:07 03/28/20 21:07 Patient (NARCISA COLLINS) - Laboratory Laboratory results interpreted by me: 03/28/20 03/28/20 03/28/20 09:15 09:15 09:15 MCV 79 L MCHC 36.4 H Potassium 2.9 L* Carbon Dioxide 31 H Total Bilirubin 3.8 H ALT 112 H NT-Pro-B Natriuret Pep 684 H Urine Protein Urine Ketones Urine Blood Urine Urobilinogen 03/28/20 10:00 MCV MCHC Potassium Carbon Dioxide Total Bilirubin ALT NT-Pro-B Natriuret Pep Urine Protein 30 H Urine Ketones 20 H Urine Blood SMALL H Urine Urobilinogen 4.0 H Patient has a low potassium level of 2.9. Also noted is a magnesium of 2.0. Plan is to replace magnesium and potassium for patient. Also to control his seizure activity with another dose of Keppra. Patient also has received in the past hour 2 mg IV lorazepam. (NARCISA COLLINS) - Diagnostic Test Radiology results interpreted by me: 03/28/20 15:15 Chest x-ray shows cardiomegaly with vascular congestive markings poor inspiration.. Also patient CT scan of head did not show any acute stroke. (NARCISA COLLINS) - EKG Interpretation by Me Additional EKG results interpreted by me: 03/28/20 14:40 Twelve-lead EKG shows normal sinus rhythm rate of 95 borderline left axis deviation. Borderline T wave abnormalities. Borderline prolonged QT interval. (NARCISA COLLINS) - Transfer of Care Notes: 03/28/20 15:[address] Estrellita Soliz for further management of seizure activity and to obtain IV access once seizure activity is brought under better control. (NARCISA COLLINS) Critical Care Note - Critical Care Note Total time excluding time spent on procedures (mins): 60 - Critical care time spent obtaining history from patient or surrogate, discussions with consultants, development of treatment plan with patient or surrogate, evaluation of patient's response to treatment, examination of patient, ordering and performing treatments and interventions, ordering and review of laboratory studies, re- evaluation of patient's condition, ordering and review of radiographic studies and review of old charts <ESTRELLITA SOLIZ - Last Filed: 03/28/20 17:38> Discharge <ESTRELLITA OSLIZ - Last Filed: 03/28/20 17:38> <NARCISA COLLINS - Last Filed: 03/29/20 06:59> - Discharge Clinical Impression: Seizure disorder, HIV positive, Status epilepticus, DNR (do not resuscitate) Hypertension Qualifiers: Hypertension type: unspecified Qualified Code(s): I10 - Essential (primary) hypertension Condition: Good Disposition: [facility] Referrals: YAEL PORTER MD [Primary Care Provider] - Follow up as needed I personally performed the services described in the documentation, reviewed and edited the documentation which was dictated to the scribe in my presence, and it accurately records my words and actions.
== END 2020-03-28 21:01 | disposition short-term general hospital (02) ==
LOC: ER 08:15
DX: G40.901 Epilepsy, unspecified, not intractable, with status epilepticus (principal); B20 Human immunodeficiency virus [HIV] disease; I10 Essential (primary) hypertension; Z79.899 Other long term (current) drug therapy; Z87.891 Personal history of nicotine dependence
CPT/HCPCS: 93005; 96376; 99285; 96375; 96365; 96366; 96367; 96368; 36415; 87040; 87086; 82962; 82550; 83605; 83690; 83735; 85025; 85610; 85730; 87077; 80053; 81001; 84484; 80307; 87150 ×26; 83880; 71045; 70450; 93010; J3490; J2250; J2060; J3475; J3480; J7030; J1953; 87186